=== PATIENT | female | born 1980 | race Caucasian/White ===

== ENCOUNTER 2025-05-04 15:23 | Outpatient (REF) | payer OTHER, SELFPAY ==
--- OUTSIDE RECORDS SUMMARY | 2025-05-04 16:33 | XMS_ITS | Clinical Summary ---
Author Organization [facility] Address [address] [place] [phone] Phone Care Team Providers Care Joy Operator Helper Name Role Phone Coco Cortez MD Primary Care Provider [phone] Allergies Active Allergy Reactions Criticality Noted Date Comments Erythromycin Hives Medium 06/23/2018 Medications cholecalciferol (VITAMIN D3) 25 MCG (1,000 unit) tablet Take 1,000 Units by mouth. Active fluticasone propionate (FLONASE) 50 mcg/actuation nasal spray 1 spray by Nasal route daily. 16 g 1 12/18/2024 Active guaiFENesin (MUCINEX) 600 mg ER biphasic tablet Take 2 tablets (1,200 mg total) by mouth 2 (two) times a day. 120 tablet 11 12/18/2024 6 Active Active Problems Problem Noted Date Diagnosed Date Screen for STD (sexually transmitted disease) Assessment & Plan (12/20/2024 12:58 PM EDT): Considering PrEP. Main partner on PrEP. Discussed effectiveness, GI side effects, and post-exposure prophylaxis as an alternative. - Discuss the option of PrEP if the risk profile changes. - Consider post-exposure prophylaxis if needed. Chronic right shoulder pain 12/20/2024 Assessment & Plan (12/20/2024 12:57 PM EDT): Pain resolved. Muscular imbalance noted from work activities. - Advise monitoring of shoulder pain. - Consider referral to a specialist if pain recurs. Eustachian tube disorder 12/20/2024 Assessment & Plan (12/20/2024 12:57 PM EDT): Eardrum healed No infection present. - Prescribe steroid nasal spray to facilitate fluid drainage. - Recommend Mucinex to help clear the fluid. - Consider ENT referral if symptoms persist. 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 Referral placed Healthcare maintenance 07/31/2020 Overview (07/31/2020): Annual anal paps recommended Resolved Problems Problem Noted Date Diagnosed Date Resolved Date Molluscum contagiosum 10/19/20212024 Assessment & Plan (01/22/2022 3:33 PM EDT): Discussed home use of condylox. Lesions all fgrozen in typical fashion with NO and pt instructed on home care. Assessment & Plan (12/12/2021 7:29 PM EDT): We discussed the self-limited nature of this disease, can last for up to 6 months, patients can spread. Generally adults have been exposed in the past and often immune but this is not an absolute. We discussed methods of treatment and patient had previously decided to move forward with freezing. 2 lesions on abdomen and 3 separate lesions on vulva were frozen in typical freeze thaw cycles of 10 seconds 3. Patient instructed on home care, when to come back, patient tolerated procedure well. Assessment & Plan (10/19/2021 4:02 PM EDT): Discussed treatment options. Pt will return for NO2 treatment in office Encounters Date Type Department Care Team Description 04/06/2025 11:00 AM EDT Nurse Only [facility] [address] [facility] [address] [place] [address] Coco Cortez MD Encounter for immunization (Primary Dx) 04/06/2025 10:58 AM EDT - 04/06/2025 11:59 PM EDT Hospital Encounter [facility] [address] [place] [address] Coco Cortez MD Discharge Disposition: Home or Self Care 04/06/2025 Orders Only [facility] [address] [place] [address] Elvi Lewis MD Encounter for immunization (Primary Dx) 03/29/2025 Orders Only [facility] [address] [place] [address] Osiris Lambert LPN Encounter for immunization (Primary Dx) from Last 3 Months Immunizations Immunization Administration Dates Next Due Hepatitis A, Adult 04/06/2025,09/29/2024 Influenza Quadrivalent Preservative Free IM 05/29 Tdap 05/18/2022 Family History Medical History Relation Comments Diabetes Father Diabetes type II Father Hyperlipidemia Father Breast cancer Maternal Aunt in her 60s Coronary artery disease Maternal Grandfather Thyroid disease Mother Heart disease Paternal Grandfather Hyperlipidemia Sister Relation Status Comments Brother Alive Father Alive Maternal Aunt Maternal Grandfather Mother Alive Paternal Grandfather Sister Alive Social History Tobacco Use Types Packs/Day Years Used Date Smoking Tobacco: Never Passive Smoke Exposure: Never Smokeless Tobacco: Never Tobacco Cessation:Counseling Given: Not Answered Alcohol Use Standard Drinks/Week Comments Not Currently 0 (1 standard drink = 0.6 oz pur e alcohol) Child or Family Care Answer Date Record ed Do you have problems with on e of the following making it difficult for you to work, study, or receive health care? No 07/22/2023 Education Answer Date Recorded Are you interested in help w ith more adult education (for example, completing high school, GED, job training, learning the [place] language, technical skills, or developing parenting skills)? No 07/22/2023 Are you concerned about learning? Not on file 07/22/2023 No 07/22/2023 Yes 07/22/2023 Food Answer Date Recorded Within the past 6 months we worried whether our food would run out before we got money to buy more. Never True 07/22/2023 Within the past 6 months the food we bought just didn't last and we didn't have enough money to get more. Never True Residential Stability Answer Date Recor ded What is your housing situation today? I have ani bui 07/22/2023 How many times have you move d in the past 12 months? Zero (I did not move) 07/22/2023 Paying for Meds Answer Date Recorded Do you have trouble paying for medicines? No 07/22/2023 Paying Utility Bills Answer Date Record ed Do you have trouble paying your heating or elect ricity bill? No 07/22/2023 Transportation Answer Date Recorded Has the lack of transportati on kept you from medical appointments or from getting medications? No 07/22/2023 Unemployment Answer Date Recorded Are you currently unemployed or working on a part-time or temporary basis, and looking for work? No 07/22/2023 Digital Access Answer Date Recorded No 07/22/2023 Yes 07/22/2023 Do you have reliable internet access at home? Ye s 07/22/2023 Do you have a device (e.g., phone, tablet, computer) with a working camera? Yes 07/22/2023 Intimate Partner Violence Answer Date R ecorded Denied Basic Needs Not on file 07/22/2023 In the past 12 months have y ou been in a relationship with a person who hurts, threatens, or tries to control you? No 07/22/2023 Worried food would run out Not on file 07/22 In the past 12 months have y ou been in a relationship with a person who hurts, threatens, or tries to control you? No 07/22/2023 Comments No Sex and Gender Information Value Date Recorded Sex Assigned at Female 12/08/2021 8:31 AM EDT Legal Sex Female 5:24 PM EST Gender Identity Non-binary 07/22/2023 12:43 PM EST Sexual Orientation Queer 07/31/2020 8: 20 AM EST Last Filed Vital Signs Vital Sign Reading Time Taken Comments Blood Pressure 100/50 12/18/2024 4:33 PM EDT Pulse 82 12/18/2024 4:33 PM EDT Temperature 36.1 C (97 F) 12/18/2024 4:33 PM EDT Respiratory Rate 16 09/25/2024 2:11 PM EDT Oxygen Saturation 99% 12/18/2024 4:33 PM EDT Inhaled Oxygen Concentration - - Weight 67.6 kg (149 lb) 12/18/2024 4:33 PM EDT Height 172.7 cm (5' 7.99 ) 12/18/2024 4:33 PM ED T Body Mass Index 22.66 12/18/2024 4:33 PM EDT Plan of Treatment Upcoming Encounters Date Type Department Care Team (Late st Contact Info) Description 11/07/2025 3:40 PM EDT Office Visit [facility] [place] [facility] [address] [facility] [address] [place], [place] [id number] Coco Cortez MD [address] [facility] [address] [place] [address] [email or web address] Due Date Last Done Comments DEPRESSION SCREENING 07/22/2024 07/22/2023, 10/16/19 INFLUENZA VACCINE (#1) 2025 06/23/2018 COVID-19 VACCINE ( season) 2025 01/19/2025, 03/29/2024, 06/02/2023, Additional history exists MAMMOGRAM 07/01/2025 07/01/2023 PAP SMEAR 07/22/2026 07/22/2023, 05/29, 06/23/2018 Adult Td,Tdap Booster 05/18/2032 05/18/2022 HEPATITIS C SCREENING Completed 12/20/2019 SMOKING STATUS SCREENING (Once After 26 Yrs) Completed 09/17/2024 HEPATITIS A VACCINES Completed 04/06/2025, 09/30/19 HIV ONE-TIME SCREENING (18-65 YEARS) Completed 04/06/2025 HIB VACCINES Aged Out No longer eligi ble based on patient's age to complete this topic MENINGOCOCCAL VACCINES (ACWY) Aged Out No longer eligible based on patient's age to complete this topic MENINGOCOCCAL VACCINES (B) Aged Out N o longer eligible based on patient's age to complete this topic PNEUMOCOCCAL VACCINES (0-49 years) Aged Out No longer eligible based on patient's age to complete this topic Medical Devices Not on file Procedures Procedure Name Priority Date/Time Associated Diagnosis Comments CHLAMYDIA TRACHOMATIS AND NEISSERIA GONORRHOEAE NUCLEIC ACID DETECTION Routine 04/06/2025 11:19 AM EDT Screen for STD (sexually transmitted disease) SYPHILIS ANTIBODY SCREEN ASSAY Routine 04/06/2025 11:09 AM EDT Screen for STD (sexually transmitted disease) HIV-1/2 ANTIGEN/ANTIBODY Routine 04/06/2025 11:09 AM EDT Screen for STD (sexually transmitted disease) PAP TEST Routine 07/22/2023 12:00 AM EST BI MAMMOGRAM SCREENING WITH TOMOSYNTHESIS WITH CAD (BILATERAL) Routine 07/01/2023 3:22 PM EST Breast screening from Last 3 Months or Most Recently Relevant to Health Maintenance Results * Chlamydia trachomatis and Neisseria gonorrhoeae Nucleic Acid Amplification (04/06/2025 11:19 AM EDT) CHLAMYDIA TRACHOMATIS Not Detected Not Detected [facility] NEISERIA GONORRHOEAE Not Detected Not Detected [facility] SPECIMEN TYPE URINE [facility] Urine (Urine) 04/06/2025 11: 19 AM EDT 04/06/2025 11:21 AM EDT Coco Cortez MD LAB GENERAL ORDERABLES Final Res ult [facility] [address] [place] [address] * HIV-1/2 antigen/antibody (04/06/2025 11:09 AM EDT) HIV-1/2 Antigen/Antibo dy NON-REACTI VE NON-REACTI VE [facility] Blood 04/06/2025 11:0 9 AM EDT 04/06/2025 11:20 AM EDT us Coco Cortez MD LAB BLOOD BKR ORDERABLES Final R esult Performing Organization Address City/[facility]/ZIP Co de Phone Number [address] [phone] * Syphilis antibody screen (04/06/2025 11:09 AM EDT) RPR NON-REACTIV E NON-REACTI VE [facility] Blood 04/06/2025 11:0 9 AM EDT 04/06/2025 11:20 AM EDT us Coco Cortez MD LAB BLOOD BKR ORDERABLES Final R esult Performing Organization Address [facility] Co de Phone Number [address] [phone] * Pap Test (07/22/2023 12:00 AM EST) Report [address] [address] Drum Dyeing Machine Operator: Jennifer Curtis MD PIPE ORGAN INSTALLER Cytology Report FINAL DIAGNOSIS A. PAP SMEAR (SUREPATH) CE: SPECIMEN ADEQUACY: Satisfactory for evaluation; transformation zone present. INTERPRETATION: NEGATIVE FOR INTRAEPITHELIAL LESION OR MALIGNANCY. Coccobacilli consistent with shift in ton Electronically Signed Out By: GODWIN Saldaña(ASCP) The Pap test is a screening test primarily for squamous cancers and precursors and has associated false-negative and false-positive results. New technologies such as liquid-based preparations may decrease but will not eliminate all false-negative results. Regular sampling and follow-up of unexplained clinical signs and symptoms are recommended to minimize false negative results. CLINICAL HISTORY Date of Last Menstrual Period: Not Provided Menstrual History: Unknown Other Clinical Conditions: Screening Pap SPECIMEN SOURCE A: PAP SMEAR (SUREPATH) CE Patient Name: CARLOTA VERGARA : 1980 (Age: 42) Sex: F Institution: [facility] Location: [facility] Date of Collection: 07/22/2023 Date of Reported: 07/28/2023 15:35 Results to: Coco Cortez MD [facility] Final Diagnosis A. PAP SMEAR (SUREPATH) CE: SPECIMEN ADEQUACY: Satisfactory for evaluation; transformation zone present. INTERPRETATION: NEGATIVE FOR INTRAEPITHELIAL LESION OR MALIGNANCY. Coccobacilli consistent with shift in ton [facility] Conversion Type (Conversion Source) 07/22/2023 07/23/2023 8:49 AM EST us Coco Cortez MD CYTOLOGY ORDERABLES Edited Resul t - Final [facility] [address] [place] [address] * BI MAMMOGRAM SCREENING WITH TOMOSYNTHESIS WITH CAD (BILATERAL) (07/01/2023 3:22 PM EST) Anatomical Region Laterality Modality Breast Left, Breast Right, Breast Bilateral Bila teral Mammography 07/06/2023 6:40 PM EST Impressions 07/07/2023 5:44 PM EST No mammographic signs of malignancy. Annual screening is recommended. BI-RADS CATEGORY: 2 - Benign finding. DENSITY: The breast tissue is heterogeneously dense, which could obscure a lesion on mammography. Narrative 07/07/2023 5:44 PM EST Bilateral mammography is performed in conjunction with computed aided detection. 3-D tomography along with 2-D C view imaging was also performed. This is a baseline exam. No suspicious masses, areas of architectural distortion or suspicious microcalcifications. Lymph node with a prominent fatty hilum in the posterior upper outer left breast. Procedure Note Seth Palafox MD - 07/07/2023 Bilateral mammography is performed in conjunction with computed aideddetection. 3-D tomography along with 2-D C view imaging was alsoperformed. This is a baseline exam. No suspicious masses, areas of architectural distortion or suspiciousmicrocalcifications. Lymph node with a prominent fatty hilum in theposterior upper outer left breast. IMPRESSION: No mammographic signs of malignancy. Annual screening is recommended. BI-RADS CATEGORY: 2 - Benign finding. DENSITY: The breast tissue is heterogeneously dense, which could obscurea lesion on mammography. Coco Cortez MD IMG MG EXAMS Final Result from Last 3 Months or Most Recently Relevant to Health Maintenance Insurance [facility] [employer] DIRECT [facility] [employer] DIRECT [facility] CONNE[employer]CARE DIRECT [facility] DIRECT [facility] [employer] DIRECT [facility] [employer] DIRECT Care Teams Joy Operator Helper Relationship Specialty Start Date End Date Coco Cortez MD [address] [address] [email or web address] PCP - General Family Medicine 01/14/22 Additional Source Comments The information contained in this document represents components of the legal health record. It is not the complete legal health record.[facility]
--- OUTSIDE RECORDS SUMMARY | 2025-05-04 16:33 | XMS_ITS | Encounter Summary ---
Author Organization [employer] Address [address] [facility] 7 [place] [address] Care Team Providers Care Burlesque Dancer Name Role Phone Leana Singh Unavailable Unavailable Encounter Details Date Type Department Care Team (Latest Contact Info) Description 08/26/2018 Abstract [facility] Dental, Provider, DDS Social History Tobacco Use Types Packs/Day Years Used Date Smoking Tobacco: Never Assessed Comments Unknown Sex and Gender Information Value Date Recorded Sex Assigned at Female 06/17/2022 11:56 AM EST Legal Sex Female 5:35 PM EDT Gender Identity Female 06/09/2022 12:52 PM EST Sexual Orientation Straight 11/24/2022 11 :50 AM EDT documented as of this encounter Plan of Treatment Upcoming Encounters Date Type Department Care Team (Late st Contact Info) Description 10/30/2025 4:00 PM EDT Office Visit [facility] Dental [address] [place] [address] Ashwini Stone LLD [address] [place] [address] documented as of this encounter Visit Diagnoses Not on filedocumented in this encounter Care Teams Burlesque Dancer Relationship Specialty Start Date End Date Leana Singh Health Navigator Financial Counseling and Assistance Services 12/28/24 documented as of this encounter
--- OUTSIDE RECORDS SUMMARY | 2025-05-04 16:33 | XMS_ITS | Encounter Summary ---
Author Organization [employer] Address [address] [facility] 7 [place] [address] Care Team Providers Care Women'S Activities Adviser Name Role Phone Leana Singh Unavailable Unavailable Encounter Details Date Type Department Care Team (Latest Contact Info) Description 11/27/2021 Abstract [facility], Provider, DDS Social [...] 10/30/2025 4:00 PM EDT Office Visit [facility] [address] [place] [address] Ashwnii Stone LLD [address] [place] [address] documented as of this encounter Visit Diagnoses Not on filedocumented in this encounter Care Teams Women'S Activities Adviser Relationship Specialty Start Date End Date Leana Singh Health Navigator Financial Counseling and Assistance Services 12/28/24 documented as of this encounter
--- OUTSIDE RECORDS SUMMARY | 2025-05-04 16:33 | XMS_ITS | Encounter Summary ---
Author Organization [employer] Address [address] [facility] 7 [place] [address] Care Team Providers Care Hydro Mechanic Name Role Phone Leana Singh Unavailable Unavailable Encounter Details Date Type Department Care Team (Latest Contact Info) Description 03/11/2021 Abstract [facility] Dental, Provider, DDS Social [...] 10/30/2025 4:00 PM EDT Office Visit [facility] Dental [address] [place] [address] Ashwini Stone LLD [address] [place] [address] documented as of this encounter Visit Diagnoses Not on filedocumented in this encounter Care Teams Hydro Mechanic Relationship Specialty Start Date End Date Leana Singh Health Navigator Financial Counseling and Assistance Services 12/28/24 documented as of this encounter
--- OUTSIDE RECORDS SUMMARY | 2025-05-04 16:33 | XMS_ITS | Clinical Summary ---
Author Organization [employer] Address [address] [place] [address] 7[address] [place] [address] Care Team Providers Care Recycling Manager Name Role Phone Leana Singh Unavailable Unavailable Allergies Active Allergy Reactions Criticality Noted Date Comments Erythromycin Hives Medium 06/23/2018 Medications cholecalciferol (Vitamin D-3) 25 MCG (1000 UT) tablet Take 1,000 Units by mouth in the morning. Active [employer] COVID-19 Ag Home Test kit USE DIRECTED 05/27/2022 Active Encounters Date Type Department Care Team Description 04/26/2025 9:20 AM EDT Office Visit [facility] Dental [address] [place] [address] Ashwini Stone LLD Stage 2 grade B generalized periodontitis per AAP/EFP 2017 classification (Primary Dx) from Last 3 Months Social History Tobacco Use Types Packs/Day Years Used Date Smoking Tobacco: Never Passive Smoke Exposure: Never Smokeless Tobacco: Never Tobacco Cessation:Counseling Given: Not Answered Alcohol Use Standard Drinks/Week Comments Never 0 (1 standard drink = 0.6 oz pur e alcohol) Comments Unknown Sex and Gender Information Value Date Recorded Sex Assigned at Female 06/17/2022 11:56 AM EST Legal Sex Female 5:35 PM EDT Gender Identity Female 06/09/2022 12:52 PM EST Sexual Orientation Straight 11/24/2022 11 :50 AM EDT Last Filed Vital Signs Vital Sign Reading Time Taken Comments Blood Pressure 104/63 04/26/2025 9:30 AM EDT Pulse 66 04/26/2025 9:30 AM EDT Temperature - - Respiratory Rate - - Oxygen Saturation - - Inhaled Oxygen Concentration - - Weight - - Height - - Body Mass Index - - Plan of Treatment Upcoming Encounters Date Type Department Care Team (Late st Contact Info) Description 10/30/2025 4:00 PM EDT Office Visit [facility] Dental [address] [place] [address] Ashwini Stone LLD [address] [place] [address] Health Maintenance Due Date Last Done Comments Depression Screening 1980 HIV Screening 1982 SDOH Screening 1982 Disability Screening 1982 Alcohol/Substance Use Screening 1994 Family Planning (PISQ) 1997 HPV Vaccines (1 - 3-dose series) 1997 Hepatitis C Screening 2000 Hepatitis B Vaccines (1 of 3 - 19+ 3-dose series) 2001 Pap Smear 2003 Cervical Cancer Screening 2012 HPV/Cotest 2012 Influenza Vaccine (#1) 2025 06/23/2018 Mammogram 07/01/2025 07/01/2023, 07/01/2023 Dental X-Ray: Bitewings 08/31/2025 08/31/19, 07/13/2023, 06/01/2022, Additional history exists Dental Oral Exam 10/26/2025 04/26/2025, 10/2024, 03/02/2024, Additional history exists Dental Prophylaxis 10/26/2025 04/26/2025, 0 08/30/2024, 03/02/2024, Additional history exists Tobacco Screening 04/26/2026 04/26/2025 Dental X-Ray: Full Mouth 09/01/2027 08/30/2024, 03/06/2018 DTaP/Tdap/Td Vaccines (2 - Td or Tdap) 05/18/2032 05/18/2022 Zoster Vaccines (1 of 2) 2032 RSV Patients and Patients Aged 60 years or older (1 - 1-dose 75+ series) 2057 COVID-19 Vaccine Completed 01/19/2025, 07/2023, 06/02/2023, Additional history exists Hepatitis A Vaccines Aged Out 04/06/2025, 09/30/19 25 No longer eligible based on patient's age to complete this topic HIB Vaccines Aged Out No longer eligi ble based on patient's age to complete this topic IPV Vaccines Aged Out No longer eligi ble based on patient's age to complete this topic Meningococcal B Vaccine Aged Out No l onger eligible based on patient's age to complete this topic Meningococcal Vaccine Aged Out No marilynn martinez eligible based on patient's age to complete this topic Pneumococcal Vaccine: Pediatrics (0 to 5 Years) and At-Risk Patients (6 to 49) Years Aged Out No longer eligible based on patient's age to complete this topic RSV under 20 months Aged Out No longe r eligible based on patient's age to complete this topic Rotavirus Vaccines Aged Out No longer eligible based on patient's age to complete this topic Procedures Procedure Name Priority Date/Time Associated Diagnosis Comments ORAL HYGIENE INSTRUCTIONS Routine 2024 9:20 AM EDT Full PROPHYLAXIS - ADULT Routine 025 9:20 AM EDT PERIODIC ORAL EVALUATION - ESTABLISHED PATIENT Routine 04/26/2025 9:20 AM EDT INTRAORAL - COMPLETE SERIES OF RADIOGRAPHIC IMAGES Routine 08/30/2024 10:55 AM EST from Last 3 Months or Most Recently Relevant to Health Maintenance Insurance [facility] - [facility] PARTIAL (MEDICAID) [place] [id number] Care Teams Recycling Manager Relationship Specialty Start Date End Date Leana Singh Health Navigator Financial Counseling and Assistance Services 12/28/24
--- OUTSIDE RECORDS SUMMARY | 2025-05-04 16:33 | XMS_ITS | Clinical Summary ---
Author Organization Sara Arre[facility] Address [address] [place] [address] Care Team Providers Care Mud Trucker Name Role Phone Coco Cortez Primary Care Provider [phone] Allergies Active Allergy Reactions Criticality Noted Date Comments Erythromycin Hives Medium 06/23/2018 Medications cholecalciferol 1,000 unit tablet Take 1 tablet (1,000 Units total) by mouth. Active Active Problems Problem Noted Date Diagnosed Date Gender dysphoria 03/20/2025 Encounters Date Type Department Care Team Description 03/20/2025 12:00 PM EDT Office Visit [facility] Plastic Surgery [address], [place] [address] Gavin Thompson MD Gender dysphoria (Primary Dx) from Last 3 Months Social History Tobacco Use Types Packs/Day Years Used Date Smoking Tobacco: Never Smokeless Tobacco: Never Tobacco Cessation:Counseling Given: Not Answered Alcohol Use Standard Drinks/Week Comments Not Currently 0 (1 standard drink = 0.6 oz pur e alcohol) Comments Unknown Sex and Gender Information Value Date Recorded Sex Assigned at Female 03/12/2025 11:40 AM EDT Legal Sex Female 12:52 PM EST Gender Identity Non-Binary 03/12/2025 11:40 AM EDT Sexual Orientation Not on file Last Filed Vital Signs Vital Sign Reading Time Taken Comments Blood Pressure - - Pulse - - Temperature - - Respiratory Rate - - Oxygen Saturation - - Inhaled Oxygen Concentration - - Weight 68.9 kg (152 lb) 03/20/2025 11:37 AM EDT Height 172 cm (5' 7.72 ) 03/20/2025 11:37 AM EDT Body Mass Index 23.31 03/20/2025 11:37 AM EDT Plan of Treatment Upcoming Encounters Date Type Department Care Team (Late st Contact Info) Description 07/30/2025 12:15 PM EST Hospital Encounter [address] [address] Gavin Thompson MD [address] [place] [id number] 07/30/2025 12:15 PM EST - 07/30/2025 4:15 PM EST Surgery [address] [address] Gavin Thompson MD [address] [place] [id number] BILATERAL MASTECTOMY, BILATERAL CHEST WALL CONTOURING AND LIPOSUCTION 08/07/2025 11:30 AM EST Office Visit [facility] Plastic Surgery [address] [address] Gavin Thompson MD [address] [place] [id number] In Person with Physician Scheduled Procedures Name Priority Associated Diagnoses Date/Ti me MASTECTOMY Gender dysphoria 07/30/2025 12:15 PM EST Health Maintenance Due Date Last Done Comments Blood Pressure 1982 Depression Screening 1986 Hepatitis C Screening 2000 HPV/Cotest 2012 Cervical Cancer Screening 06/23/2021 Pap Smear 06/23/2021 06/23/2018 COVID-19 Vaccine (1 - 2023-2 5 season) 2025 Influenza Vaccine (#1) 2025 06/23/2018 Breast Cancer Screening 07/01/2025 07/01/19, 07/01/2023 Lipid Panel 07/22/2028 07/22/2023, 08/17/2022 DTaP,Tdap,and Td Vaccines (2 - Td or Tdap) 05/18/2032 05/18/2022 Meningococcal B Vaccines Aged Out No longer eligible based on patient's age to complete this topic Meningococcal Vaccines Aged Out No lo nger eligible based on patient's age to complete this topic Pneumococcal Vaccine Aged Out No long er eligible based on patient's age to complete this topic Goals Goal Patient Goal Type Associated Problems Recent Progress Patient-Stated? Author Autogenerat ed Goal Care Plan Autogenerated Problem No Denis Sousa Additional Health Concerns Active Problems Noted Date Diagnosed Date Autogenerated Problem 03/26/2025 Insurance [facility] Refund Exchange [facility] Care Teams Mud Trucker Relationship Specialty Start Date End Date Coco Cortez [address] [place] [address] PCP - General 02/13/25
--- OUTSIDE RECORDS SUMMARY | 2025-05-04 16:33 | XMS_ITS | Encounter Summary ---
Author Organization [employer] Address [address] [facility] 7 [place] [address] Care Team Providers Care Automotive Service Professional Name Role Phone Leana Signh Unavailable Unavailable Encounter Details Date Type Department Care Team (Latest Contact Info) Description 03/06/2020 Abstract [facility] Dental, Provider, DDS Social [...] 10/30/2025 4:00 PM EDT Office Visit [facility] Dental [address] [place] [address] Ashwini Stone LLD [address] [place] [address] documented as of this encounter Visit Diagnoses Not on filedocumented in this encounter Care Teams Automotive Service Professional Relationship Specialty Start Date End Date Leana Singh Health Navigator Financial Counseling and Assistance Services 12/28/24 documented as of this encounter
--- OUTSIDE RECORDS SUMMARY | 2025-05-04 16:33 | XMS_ITS | Encounter Summary ---
Author Organization [facility] Address [address] [facility] [address] [place] [address] Phone Care Team Providers Care Invoice Classification Clerk Name Role Phone Coco Cortez MD Primary Care Provider [phone] Encounter Details Date Type Department Care Team (Late st Contact Info) Description 05/19/2023 Procedure Pass [facility] - [address] [place] [address] Social History Tobacco Use Types Packs/Day Years Used Date Smoking Tobacco: Never Smokeless Tobacco: Never Alcohol Use Standard Drinks/Week Comments Not Currently 0 (1 standard drink = 0.6 oz pur e alcohol) Child or Family Care Answer Date Record ed Do you have problems with on e of the following making it difficult for you to work, study, or receive health care? No 05/17/2022 Education Answer Date Recorded Are you interested in help w ith more adult education (for example, completing high school, GED, job training, learning the [place]ian language, technical skills, or developing parenting skills)? No 05/17/2022 Food Answer Date Recorded Within the past 6 months we worried whether our food would run out before we got money to buy more. Never True 05/17/2022 Within the past 6 months the food we bought just didn't last and we didn't have enough money to get more. Never True Residential Stability Answer Date Recor ded What is your housing situation today? I have ani sing 05/17/2022 How many times have you move d in the past 12 months? Zero (I did not move) 05/17/2022 Paying for Meds Answer Date Recorded Do you have trouble paying for medicines? No 05/17/2022 Paying Utility Bills Answer Date Record ed Do you have trouble paying your heating or elect ricity bill? No 05/17/2022 Transportation Answer Date Recorded Has the lack of transportati on kept you from medical appointments or from getting medications? No 05/17/2022 Unemployment Answer Date Recorded Are you currently unemployed or working on a part-time or temporary basis, and looking for work? No 05/17/2022 Digital Access Answer Date Recorded No 11/20/2022 No 11/20/2022 Reliable internet access at home? Not on file 11/20/2022 Device with a working camera? Not on file Comments No Sex and Gender Information Value Date Recorded Sex Assigned at Female 12/08/2021 8:31 AM EDT Legal Sex Female 5:24 PM EST Gender Identity Non-binary 07/22/2023 12:43 PM EST Sexual Orientation Queer 07/31/2020 8: 20 AM EST documented as of this encounter Plan of Treatment Upcoming Encounters Date Type Department Care Team (Late st Contact Info) Description 11/07/2025 3:40 PM EDT Office Visit [facility] Primary Care [address] [facility] [address] [place] [address] Coco Cortez MD [address] [place] [address] [email or web address] documented as of this encounter Visit Diagnoses Not on filedocumented in this encounter Additional Health Concerns Infection Onset Date Last Indicated Resolved Time CoV-Risk 08/18/2024 08/18/2024 08/29/2024 1:23 AM EST Assessment Noted Time PHQ-9 Depression Total Score: 2 10/16/19 3:34 PM EDT PHQ-2 Depression Total Score: 0 10/16/19 3:34 PM EDT documented as of this encounter Care Teams Invoice Classification Clerk Relationship Specialty Start Date End Date Coco Cortez MD [address] [place] [address]. [address] [place] [address] [email or web address] PCP - General Family Medicine 01/14/22 documented as of this encounter Additional Source Comments The information contained in this document represents components of the legal health record. It is not the complete legal health record.[facility]
--- OUTSIDE RECORDS SUMMARY | 2025-05-04 16:33 | XMS_ITS | Encounter Summary ---
Author Organization [facility] Address [address] [facility] [address] [place] [address] Phone Care Team Providers Care Sales Representative Uniforms Name Role Phone Coco Cortez MD Primary Care Provider [phone] Reason for Visit * Reason Comments Immunizations Hep A Encounter Details Date Type Department Care Team (Late st Contact Info) Description 04/06/2025 Orders Only [facility] [place] [facility] [address] [facility] [address] [place] [address] Elvi Lewis MD [address] [facility]. [address] [place] [address] Encounter for immunization (Primary Dx) Social History Tobacco Use Types Packs/Day Years Used Date Smoking Tobacco: Never Passive Smoke Exposure: Never Smokeless Tobacco: Never Alcohol Use Standard [...] high school, GED, job training, learning the [place] language, technical skills, or developing parenting skills)? [...] Description 11/07/2025 3:40 PM EDT Office Visit [facility] [place] [facility] [address] [facility] [address] [place] [address] Coco Cortez MD [address] [address] [email or web address] documented as of this encounter Visit Diagnoses Diagnosis Encounter for immunization- Primary documented in this encounter Additional Health Concerns Assessment Noted Time PHQ-9 Depression Total Score: 2 10/16/19 23 3:34 PM EDT PHQ-2 Depression Total Score: 0 07/22/19 24 12:46 PM EST documented as of this encounter Care Teams Sales Representative Uniforms Relationship Specialty Start Date End Date Coco Cortez MD [address] [address] [email or web address] PCP - General Family Medicine 01/14/22 documented as of this encounter Additional Source Comments The information contained in this document represents components of the legal health record. It is not the complete legal health record.[facility]
--- OUTSIDE RECORDS SUMMARY | 2025-05-04 16:33 | XMS_ITS | Encounter Summary ---
Author Organization [facility] Address [address] [facility] [address] [place] [address] Phone Care Team Providers Care Wire Border Assembler Name Role Phone Coco Cortez MD Primary Care Provider [phone] Encounter Details Date Type Department Care Team (Latest Contact Info) Description 05/19/2023 Transcribe Orders Virtual Department [address] [place] [address] Coco Cortez MD [address] [facility]. [address] [place] [address] [email or web address] Breast screening (Primary Dx) Social History Tobacco Use Types [...] high school, GED, job training, learning the [place] language, technical skills, or developing parenting skills)? [...] a working camera? Not on file Comments Unknown Sex and Gender Information Value [...] Description 11/07/2025 3:40 PM EDT Office Visit [facility] [place] [facility] [address] [place] [address] [address] [place] [address] Coco Cortez MD [address] [place] [address] [address] [place] [address] [email or web address] documented as of this encounter Results * BI MAMMOGRAM SCREENING WITH TOMOSYNTHESIS WITH CAD (BILATERAL) (07/01/2023 3:22 PM EST) Anatomical Region Laterality Modality Breast Left, Breast Right, Breast Bilateral Bila teral Mammography 07/06/2023 6:4 0 PM EST Impressions 07/07/2023 5:44 PM EST [...] Cortez MD IMG MG EXAMS Final Result documented in this encounter Visit Diagnoses Diagnosis Breast screening- Primary Breast screening, unspecified Breast screening Breast screening, unspecified documented in this encounter Additional Health Concerns Infection Onset Date Last Indicated Resolved Time CoV-Risk 08/18/2024 08/18/2024 08/29/2024 1:23 AM EST Assessment Noted Time PHQ-9 Depression Total Score: 2 10/16/19 23 3:34 PM EDT PHQ-2 Depression Total Score: 0 10/16/19 3:34 PM EDT documented as of this encounter Care Teams Wire Border Assembler Relationship Specialty Start Date End Date Coco Cortez MD [address] [place] [address] [email or web address] PCP - General Family Medicine 01/14/22 documented as of this encounter Additional Source Comments The information contained in this document represents components of the legal health record. It is not the complete legal health record.[facility]
--- OUTSIDE RECORDS SUMMARY | 2025-05-04 16:33 | XMS_ITS | Encounter Summary ---
Author Organization [employer] Address [address] [facility] 7 [place] [address] Care Team Providers Care Strapper And Buffer Name Role Phone Leana Singh Unavailable Unavailable Encounter Details Date Type Department Care Team (Latest Contact Info) Description 09/04/2020 Abstract [facility] Dental, Provider, DDS Social [...] 10/30/2025 4:00 PM EDT Office Visit [facility] Dental [address] [place] [address] Ashwini Stone LLD [address] [place] [address] documented as of this encounter Visit Diagnoses Not on filedocumented in this encounter Care Teams Strapper And Buffer Relationship Specialty Start Date End Date Leana Singh Health Navigator Financial Counseling and Assistance Services 12/28/24 documented as of this encounter
--- OUTSIDE RECORDS SUMMARY | 2025-05-04 16:33 | XMS_ITS | Encounter Summary ---
Author Organization [facility] Address [address] [facility] [address] [place] [address] Phone Care Team Providers Care Doughnut Icer Name Role Phone Coco Cortez MD Primary Care Provider [phone] Encounter Details Date Type Department Care Team (Late st Contact Info) Description 03/29/2025 Orders Only [facility] [place] [facility] [address] [facility] [address] [place] [address] Osiris Lambert LPN [address] [place] [address] Encounter for immunization (Primary Dx) Social History [...] high school, GED, job training, learning the Chadian language, technical skills, or developing parenting skills)? [...] 11/07/2025 3:40 PM EDT Office Visit [facility] [place] [facility] [address] [facility] [address] [place] [address] Coco Cortez MD [address] [address] [email or web address] documented as of this encounter Visit Diagnoses Diagnosis Encounter for immunization- Primary documented in this encounter Additional Health Concerns Assessment Noted Time PHQ-9 Depression Total Score: 2 10/16/19 23 3:34 PM EDT PHQ-2 Depression Total Score: 0 07/22/19 24 12:46 PM EST documented as of this encounter Care Teams Doughnut Icer Relationship Specialty Start Date End Date Coco Cortez MD [address] [address] [email or web address] PCP - General Family Medicine 01/14/22 documented as of this encounter Additional Source Comments The information contained in this document represents components of the legal health record. It is not the complete legal health record.[facility]
== END 2025-05-04 15:24 | disposition home or self-care (01) ==
LOC: HO.MAMMO 15:23
PROVIDERS: PCP Family Medicine; Visit Provider Family Medicine
DX: Z12.31 Encounter for screening mammogram for malignant neoplasm of breast (principal)
CPT/HCPCS: 77063; 77067

== ENCOUNTER → 2025-05-04 15:45 | Outpatient (BNV) | payer OTHER, SELFPAY | PROVIDERS: PCP Family Medicine; Visit Provider Internal Medicine | DX: Z12.31 Encounter for screening mammogram for malignant neoplasm of breast (principal) | CPT/HCPCS: 77063; 77067 ==